=== PATIENT | male | born 1980 | race Caucasian/White ===

== ENCOUNTER → 2016-03-21 | Outpatient (CLI) | payer BC ==
[~2016-03-21] MED LIST: BENTYL 20MG TAB20 MG PO; LEVAQUIN 750MG750 MG PO; LORTAB 5/500 501 TAB PO; MVI
== END ==
LOC: MHCPAIN 08:10
DX: G89.29 Other chronic pain (principal); M47.817 Spondylosis without myelopathy or radiculopathy, lumbosacral region; M53.3 Sacrococcygeal disorders, not elsewhere classified
CPT/HCPCS: G0463

== ENCOUNTER → 2016-04-07 | Outpatient (CLI) | payer BC | LOC: MHCPAIN 09:55 | DX: M53.3 Sacrococcygeal disorders, not elsewhere classified (principal) | CPT/HCPCS: G0260; J1040; Q9967 ==

== ENCOUNTER 2016-04-19 08:00 | Outpatient (RCR) | payer BC | END 2016-04-21 10:42 | disposition still patient (30) | LOC: WSPT 08:00 | DX: M53.3 Sacrococcygeal disorders, not elsewhere classified (principal); M54.5 Low back pain ==

== ENCOUNTER → 2017-01-04 | Outpatient (CLI) | payer BC | LOC: MHCPAIN 07:58 | DX: G89.29 Other chronic pain (principal); M47.27 Other spondylosis with radiculopathy, lumbosacral region; M53.3 Sacrococcygeal disorders, not elsewhere classified | CPT/HCPCS: G0463 ==

== ENCOUNTER → 2017-01-04 | Outpatient (CLI) | payer BC | LOC: COL.RAD 08:41 | DX: M47.816 Spondylosis without myelopathy or radiculopathy, lumbar region (principal) ==

== ENCOUNTER → 2017-01-26 | Outpatient (CLI) | payer BC | LOC: MHCPAIN 11:44 | DX: M47.27 Other spondylosis with radiculopathy, lumbosacral region (principal) | CPT/HCPCS: J1100; J2250; J3010; Q9967 ==

== ENCOUNTER → 2017-02-08 | Outpatient (CLI) | payer BC | LOC: MHCPAIN 08:12 | DX: G89.29 Other chronic pain (principal); M47.27 Other spondylosis with radiculopathy, lumbosacral region; M53.3 Sacrococcygeal disorders, not elsewhere classified | CPT/HCPCS: G0463 ==

== ENCOUNTER → 2017-03-09 | Outpatient (CLI) | payer BC | LOC: MHCPAIN 13:34 | DX: M47.817 Spondylosis without myelopathy or radiculopathy, lumbosacral region (principal) | CPT/HCPCS: J1040; Q9967 ==